=== PATIENT | male | born 1995 | race Caucasian/White ===

== ENCOUNTER 2021-12-03 17:13 | Emergency (ER) | payer OTHER, BC ==
[2021-12-03] MEDS: Lidocaine 1% 5 ML VIAL INJECT ONE (17:48)
[2021-12-03] MEDS: Diphtheria,Pertussis(Acell),Tetanus Vaccine 0.5 ML Syringe IM ONE (17:48)
[2021-12-03] MEDS ORDERED: Sodium Chloride 0.9% 10 ML Syringe FLUSH PRN (18:33)
[2021-12-03] MEDS: ceFAZolin 1 GM Vial IVPUSH ONE (18:44)
[2021-12-03] MEDS: HYDROmorphone 0.5 MG/0.5 ML Syringe IVPUSH ONE (19:09)
[2021-12-03] MEDS: Ondansetron 4 MG/2 ML SDV IVPUSH ONE (19:09)
[2021-12-03] MEDS: ceFAZolin 1 GM Vial ONE (19:10)
[2021-12-03] MEDS: Take Home: Acetaminophen/HYDROcodone 325-5 MG, 5 Tab Pack PO ONE (20:05)
== END 2021-12-03 20:15 | disposition home or self-care (01) ==
LOC: VM.ED 17:13
DX: S52.502B Unspecified fracture of the lower end of left radius, initial encounter for open fracture type I or II (principal); Z23 Encounter for immunization; W23.0XXA Caught, crushed, jammed, or pinched between moving objects, initial encounter
CPT/HCPCS: 29125; 29505; 73090-LT; 90471; 90715; 96374; 96375; 99283; 99283-25; A9270-GY; J0690; J1170; J2405